=== PATIENT | female | born 2005 | race Caucasian/White ===

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

== ENCOUNTER 2024-09-12 09:37 | Emergency (ER) | payer MEDICAID, SELFPAY ==
[2024-09-12 09:40] VITALS: BP 155/97; PULSE 85; RESP 18; TEMP 36.1; O2SAT 97
--- NOTE | 2024-09-12 09:53 | W.ED.GENAD ---
Discharge Plan Disposition Patient Disposition: Home Condition: Stable Discharge Details Clinical Impression: Abdominal pain, N&V (nausea and vomiting) Primary Care Provider: Masood Bowling ED Provider: Kalia Dalton Home Meds and New Rx's Prescriptions: New ondansetron 4 mg tablet,disintegrating 4 mg PO BID PRN (Reason: nausea and vomiting) Qty: 30 0RF Continued melatonin 3 mg tablet 3 mg PO HS PRN (Reason: sleep) Qty: 30 1RF ondansetron 4 mg tablet,disintegrating 4 mg PO Q8H PRN (Reason: nausea and vomiting) Qty: 10 1RF hydroxyzine HCl 25 mg tablet 25 mg PO QHS Qty: 30 0RF escitalopram oxalate [Lexapro] 10 mg tablet 15 mg PO DAILY Qty: 45 0RF levonorgestrel-ethinyl estrad [Lessina] 0.1-20 mg-mcg tablet 1 tab PO DAILY Qty: 84 4RF lamotrigine 100 mg tablet 100 mg PO DAILY Qty: 90 0RF ibuprofen 400 mg Tablet 400 mg PO Q8H PRN Discharge Instructions Additional Instructions: Your blood work and ultrasound did not show any emergent findings. You can try taking a daily acid manager decision support such as omeprazole which is [id number]. Follow-up primary care provider especially if not improving. If you feel more ill, have persistent vomiting despite the nausea medication or severe worsening abdominal pain return to the emergency department for reevaluation. HPI General Mode of arrival: ambulatory. Date/Time Provider Initiated Documentation: 09/12/24 09:37. Limitations to Documentation: no limitations. Information obtained by: patient. History of Present Illness 19 year old F presents to the emergency department with the chief complaint of n/v, described as moderate, Patient started experiencing this day(s) (6) and it has been intermittent. No relieving factors improve symptom(s), No exacerbating factors reported . Patient notes nausea/vomiting; denies chest pain, fever/chills and shortness of breath. Related Data Home Medications ?Medication ?Instructions ?Recorded ?Confirmed ibuprofen 400 mg tablet 400 mg PO Q8H PRN 04/26/20 01/22/24 hydroxyzine HCl 25 mg tablet 25 mg PO QHS #30 tabs 12/10/23 01/22/24 melatonin 3 mg tablet 3 mg PO HS PRN sleep #30 tabs 12/03/24 12/03/24 ondansetron 4 mg disintegrating 4 mg PO Q8H PRN nausea and 01/22/24 01/22/24 tablet vomiting #10 tabs escitalopram oxalate 10 mg tablet 15 mg (1.5 x 10 mg) PO DAILY #45 06/18/24 (Lexapro) tabs levonorgestrel-ethinyl estradiol 1 tab PO DAILY #84 tabs 06/18/24 0.1 mg-20 mcg tablet (Lessina) lamotrigine 100 mg tablet 100 mg PO DAILY #90 tabs 08/06/24 ondansetron 4 mg disintegrating 4 mg PO BID PRN nausea and 09/12/24 tablet vomiting #30 tabs Previous Rx's ?Medication ?Instructions ?Recorded hydroxyzine HCl 25 mg tablet 25 mg PO QHS #30 tabs 12/10/23 melatonin 3 mg tablet 3 mg PO HS PRN sleep #30 tabs 01/22/24 ondansetron 4 mg disintegrating 4 mg PO Q8H PRN nausea and 01/22/24 tablet vomiting #10 tabs escitalopram oxalate 10 mg tablet 15 mg (1.5 x 10 mg) PO DAILY #45 06/18/24 (Lexapro) tabs levonorgestrel-ethinyl estradiol 1 tab PO DAILY #84 tabs 06/18/24 0.1 mg-20 mcg tablet (Lessina) lamotrigine 100 mg tablet 100 mg PO DAILY #90 tabs 08/06/24 ondansetron 4 mg disintegrating 4 mg PO BID PRN nausea and 09/12/24 tablet vomiting #30 tabs Allergies Allergy/AdvReac Type Severity Reaction Status Date / Time No Known Allergies Allergy Verified 01/22/24 10:44 General Stated Complaint: Nausea/Vomit/Diar KRISTY: 3 Review of Systems All systems reviewed & are unremarkable except as noted in HPI and below Constitutional Constitutional: Denies chills, Denies fever(s) and Denies weakness Cardiovascular Cardiovascular: Denies chest pain and Denies dyspnea Respiratory Respiratory: Denies cough and Denies dyspnea Gastrointestinal Gastrointestinal: Reports abdominal pain, Reports nausea and Reports vomiting Neurologic Neurologic: Denies weakness Psychiatric Psychiatric: Denies depression Exam Const General: no acute distress Orientation: alert HENLA Head: normal to inspection Ears: external ears normal General nose exam: external nose normal Mouth: moist mucous membranes Eyes General: appearance normal, both eyes and all related structures Neck Neck: normal visual inspection Resp Effort & Inspection: normal respiratory effort and able to speak in complete sentences Cardio Rate: regular rate GI Palpation: soft, not firm, no guarding and tender Skin General skin exam: no rashes or lesions noted Neuro General: patient alert and patient oriented x3 Extrem General: normal to inspection Psych Mental Status: mental status grossly normal Course Vital Signs Vital signs: Vital Signs Temperature 36.1 C L 09/12/24 09:40 Pulse 85 09/12/24 09:40 Respiratory Rate 18 09/12/24 09:40 Blood Pressure 155/97 H 09/12/24 09:40 Pulse Oximetry 97 09/12/24 09:40 Temperature 36.1 C L 09/12/24 09:40 Temperature Source Tympanic 09/12/24 09:40 Pulse 85 09/12/24 09:40 Respiratory Rate 18 09/12/24 09:40 Blood Pressure 155/97 H 09/12/24 09:40 Pulse Oximetry 97 09/12/24 09:40 Oxygen Delivery Method Room Air 09/12/24 09:40 Oxygen Flow Rate 0 09/12/24 09:40 Medical Decision Making 19-year-old female with a history of anxiety comes in with 6 days of intermittent nausea vomiting that is usually worse in the morning and improves throughout the day. She denies any high fevers, chest pain, difficulty breathing. She says that she will intermittently also have some epigastric discomfort. She is stable on arrival and well-appearing in no distress. Her abdomen is soft and nondistended. She has epigastric discomfort when palpating the epigastric area otherwise no tenderness in the abdomen. Will treat her symptoms with IV fluids and Compazine and check a CBC, hCG, CMP and lipase. Given her reassuring abdominal exam I doubt surgical pathology such as cholecystitis or appendicitis or SBO and do not feel imaging currently indicated. Patient stable, did have some anxiety after given Compazine so was given Benadryl with good relief. Labs show minimally elevated white count and also minimally elevated lipase. She has continued epigastric discomfort. Will proceed with an ultrasound to evaluate for gallbladder pancreatic abnormality. Patient stable. No longer having abdominal tenderness on exam. Ultrasound unremarkable. She is stable for discharge and I recommended starting a daily omeprazole, she will follow-up with PCP if not improving and return precautions given Differential Diagnosis Differential Diagnosis: Cyclic vomiting, food sensitivity, PFSH All Active Problems (Updated 09/12/24 @ 11:52 by Kalia Dalton MD) N&V (nausea and vomiting) (Acute) Abdominal pain (Acute) Contraception (Acute) OCPs Mood disorder (Acute) Chronic neck and back pain (Acute) PT referral Anxiety (Chronic) Normal weight, pediatric, BMI 5th to 84th percentile for age (Acute) Medical History Acute neck pain Other specified counseling Contraception Serous otitis media (01/03/13) Chronic with decreased hearing as a result. s/p PE tube placement 11/26 Perforation of left tympanic membrane (07/05/17) Patent pressure equalization (PE) tubes, bilateral (10/09/16) History of wrist fracture (12/31/13) right History of seizure (~2015) EEG neg ? syncopal related Hx of otitis media Surgical History Tonsillectomy and adenoidectomy Myringotomy w/ PE (pressure equalizing) tubes Cystostomy, Open removed from wrist Family History Mother Age: 45 Mental disorder Depression and anxiety Breast cancer ERPR positive Father Age: 53 Hyperlipidemia Other Substance abuse Diabetes Essential hypertension Social History (Updated 07/03/23 @ 13:40 by Natasha Dorantes RN) Smoking/Tobacco Use Status: Never Smoking risk assessment performed?: Yes Alcohol Intake: never Drug use: Never Substance use type: does not use Education Level: college Details: [employer] Pets and animals: Yes Pets and animals: dog(s) Do you feel safe at home: Yes Do you feel safe in your relationship?: Yes Female Reproductive History Menstrual control method: pills History History 0 Para Hx # Term Pregnancies Multiple births Hx # Pregnancies Ectopic pregnancies AB induced Hx Number of Living Children AB spontaneous
[2024-09-12 10:03] LABS: Glucose Negative (Negative)
[2024-09-12 10:12] LABS: C & S Indicated? No; RBC 20-50 HPF (0-2); WBC 0-2 HPF (0-5)
[2024-09-12 10:28] LABS: Abs Immature Grans 0.03 10^3/uL (0.0-0.06); HCT 38.6 % (36.0-46.0); HGB 13.8 g/dL (11.2-15.7); Immature Grans % 0.3 %; MCH 31.4 pg (27.0-33.0); MCHC 35.8 % (32.0-36.0); MCV 88 fL (80-95); MPV 10.1 fL (8.0-11.0); Platelet Count 421 10^3/uL (130-400); RBC 4.40 10^6/uL (3.93-5.22); RDW 11.9 % (11.7-14.6); RDW-SD 38.2 fL; WBC 11.73 10^3/uL (4.4-10.8)
[2024-09-12] MEDS: Normal Saline 1,000 ML 1000 ML IV (10:29)
[2024-09-12] MEDS: Prochlorperazine 10 MG/2 ML VIAL IVP (10:30)
[2024-09-12 10:31] VITALS: BP 139/90; PULSE 68; O2SAT 96
[2024-09-12 10:42] LABS: ALT 31 U/L (14-59); AST 16 U/L (15-37); Albumin 5.4 g/dL (3.4-5.0); Alkaline Phosphatase 43 U/L (46-116); Anion Gap 16.7 mmol/L (3-11); BUN 10 mg/dL (7-18); Bilirubin, Direct 0.2 mg/dL (0.0-0.2); Bilirubin, Total 0.9 mg/dL (0.2-1.0); CO2 21.3 mmol/L (21.0-32.0); Calcium 10.3 mg/dL (8.5-10.1); Chloride 101 mmol/L (98-107); Estimated GFR 126.90 (mL/min/1.73m2); Glucose 98 mg/dL (74-106); Lipase 85 U/L (<78); Magnesium 2.0 mg/dL (1.8-2.4); Potassium 3.6 mmol/L (3.5-5.1); Sodium 139 mmol/L (136-145); Total Protein 8.6 g/dL (6.4-8.2)
[2024-09-12] MEDS: diphenhydrAMINE 50 MG/ML VIAL 25 MG IVP (10:48)
[2024-09-12 10:54] LABS: HCG Qual (Serum) Negative
--- NOTE | 2024-09-12 11:00 | DI.US_ITS ---
Exam(s) US ABDOMEN LIMITED EXAM: US ABDOMEN LIMITED CLINICAL HISTORY: ruq and epigastric pain TECHNIQUE: Ultrasound abdomen performed using standard protocol. COMPARISON: No exams were available for comparison FINDINGS: LIVER: Normal size. Normalechogenicity. No focal liver lesions are seen.. GALLBLADDER: No evidence of cholelithiasis. No evidence of wall thickening. No pericholecystic fluid identified. QUIROZ'S SIGN: Negative. BILIARY SYSTEM: No intrahepatic or extrahepatic biliary ductal dilation. RIGHT KIDNEY: Normal size. No evidence of renal calculi. No evidence of hydronephrosis. No suspicious renal mass. No cyst identified. PANCREAS: Normal where visualized. ABDOMINAL AORTA AND IVC: Visualized portions normal caliber. ASCITES: None seen. IMPRESSION: Normal sonographic appearance of the right upper quadrant. DATA REPOSITORY:
[2024-09-12 11:35] VITALS: BP 131/84; PULSE 80; O2SAT 98
[2024-09-12 12:01] VITALS: BP 132/82; PULSE 77; RESP 18; O2SAT 98
== END 2024-09-12 12:02 | disposition home or self-care (01) ==
PROVIDERS: Emergency Provider Emergency Medicine; PCP Nurse Practitioner Family
DX: R10.9 Unspecified abdominal pain (principal); R11.2 Nausea with vomiting, unspecified; F41.9 Anxiety disorder, unspecified
CPT/HCPCS: 99284 ×2; 96374; 96375; 80053; 83690; 96361; 76705; 81003; 81015; 82248; 83735; 84703; 85025; J0780; J1200